=== PATIENT | female | born 1970 | race Caucasian/White ===

== ENCOUNTER → 2016-07-04 | Outpatient (CLI) | payer OTHER ==
--- NOTE | 2016-07-04 18:36 | REP ---
MRI RIGHT KNEE WITH AND WITHOUT CONTRAST: TECHNIQUE: Axial proton density fat saturation, sagittal proton density T2 STIR, water excitation, coronal proton density, proton density fat saturation. Pre and post T1 fat sat imaging, following the intravenous administration of 17 mL of gadolinium. Menisci are intact with no evidence of a tear. Cruciate and collateral ligaments are intact extensor mechanism is intact. There is mild edema and fluid anterior to the patellar tendon which may indicate mild prepatellar bursitis. There is mild to moderate diffuse chondromalacia of the patella. There is mild chondromalacia diffusely in the medial joint compartment. There is no bone marrow edema or occult fracture. There is a mild joint effusion. I do not see a popliteal cyst. Diffuse superficial soft-tissue edema is seen medially which is nonspecific with minimal soft tissue edema laterally. IMPRESSION: No meniscal tear. Cruciate and collateral ligaments are intact. There is edema and mild fluid anterior to the patellar tendon which may represent prepatellar bursitis. Superficial soft-tissue edema is also seen to a moderate degree medially and to a minimal degree laterally. Mild to moderate chondromalacia of the patella. Mild chondromalacia on the medial compartment. Signed by Silvestre Kim MD 07/04/2016 08:06 P
== END ==
LOC: M RAD 12:37
PROVIDERS: ATTEND Family Medicine
DX: M25.561 Pain in right knee (principal)
CPT/HCPCS: 73723; A9576

== ENCOUNTER 2017-01-25 18:40 | Observation (INO) | payer OTHER ==
[~2017-01-25] VITALS: Ht 172.7 cm; Wt 88.6 kg
[2017-01-25] MEDS ORDERED: BUPR150T3 PO (19:03)
[2017-01-25] MEDS ORDERED: SERT-138 PO (19:03)
[2017-01-25] MEDS ORDERED: ASPI325T24 PO (19:03)
[2017-01-25] MEDS ORDERED: CLON0.5T PO ×2 (19:03→22:12)
[2017-01-25] MEDS ORDERED: LAMO100T PO (19:03)
[2017-01-25] MEDS ORDERED: ZANA4TAB PO (19:03)
[2017-01-25] MEDS ORDERED: GABA-282 PO (19:03)
[2017-01-25] MEDS: NS 1,000 ML IV SCH (19:19)
[2017-01-25 19:46] LABS: BASO # 0.1 10^3/uL (0.0-0.2); BASO % 0.6 % (0.0-1.0); EOS # 0.3 10^3/uL (0.0-0.50); EOS % 3.1 % (0.0-3.0); IMMATURE GRANULOCYTE % 0.4 % (0-0); LYMPH # 2.9 10^3/uL (1.5-4.5); MEAN CORPUSCULAR HEMOGLOBIN 30.2 pg (27.0-33.0); MEAN CORPUSCULAR HGB CONC 33.6 g/dl (32.0-36.5); MEAN CORPUSCULAR VOLUME 89.8 fl (80.0-96.0); MONO # 0.6 10^3/uL (0.0-0.8); MONO % 6.1 % (0.0-5.0); NEUTROPHILS # 6.5 10^3/uL (1.8-7.7); NEUTROPHILS % 61.8 % (36.0-66.0); PLATELET COUNT, AUTOMATED 266 10^3/uL (150-450); RED CELL DISTRIBUTION WIDTH 13.1 % (11.5-14.5); WHITE BLOOD COUNT 10.5 10^3/uL (4.0-10.0)
--- NOTE | 2017-01-25 20:00 | REPUSA ---
CT of the head Clinical history: altered mental status. Technique: Multiple axial CT images were obtained through the head without administration of contrast . Findings: The ventricles and sulci are symmetric bilaterally. There is no evidence of acute hemorrhag e or infarct. There is no midline shift, mass effect, or extra-axial fluid collection. The osseous st ructures are unremarkable. The visualized paranasal sinuses and mastoid air cells are clear. Impression: Negative study.
[2017-01-25 20:12] LABS: ALBUMIN 3.9 GM/DL (3.2-5.2); ALBUMIN/GLOBULIN RATIO 0.95 (1.00-1.93); ALKALINE PHOSPHATASE 124 U/L (45-117); ALT/SGPT 29 U/L (12-78); ANION GAP 9 MEQ/L (8-16); AST/SGOT 21 U/L (7-37); BILIRUBIN,DIRECT < 0.1 MG/DL (0.0-0.2); BILIRUBIN,TOTAL 0.3 MG/DL (0.2-1.0); BLOOD UREA NITROGEN 16 MG/DL (7-18); CALCIUM LEVEL 8.7 MG/DL (8.5-10.1); CARBON DIOXIDE LEVEL 25 MEQ/L (21-32); CHLORIDE LEVEL 106 MEQ/L (98-107); CREATININE FOR GFR 0.82 MG/DL (0.55-1.02); GLOMERULAR FILTRATION RATE > 60.0 (>58); GLUCOSE, FASTING 88 MG/DL (70-105); POTASSIUM SERUM 3.9 MEQ/L (3.5-5.1); SODIUM LEVEL 140 MEQ/L (136-145)
[2017-01-25 20:55] LABS: METHADONE URINE NEGATIVE (NEGATIVE)
[2017-01-25] MEDS ORDERED: ACETAMINOPHEN 325 MG TAB PO ONE (21:00)
[2017-01-25] MEDS ORDERED: METOCLOPRAMIDE INJ 10MG/2ML VIAL (J2765) IV ONE (22:15)
--- NOTE | 2017-01-25 22:20 | REP ---
Clinical: Trauma. Fall . Technique: Internal rotation, external rotation, and Y view right shoulder . Findings: No acute fracture or dislocation. The acromioclavicular and glenohumeral joints are intact. No periarticular calcifications or degenerative changes are appreciated. Sub acromial space is normal. Surrounding soft tissues are unremarkable. Impression: Normal right shoulder radiographs. No acute fracture or dislocation. Signed by Faraz Metzger MD 01/25/2017 10:12 P
[2017-01-26] MEDS ORDERED: ONDANSETRON 4MG/2ML VIAL (J2405) IV PRN
[2017-01-26] MEDS ORDERED: ACETAMINOPHEN TAB 650MG DOSE (2X325MG) PO PRN
[2017-01-26] MEDS ORDERED: PERCOCET 5MG/325MG TAB PO PRN (00:15)
--- NOTE | 2017-01-26 00:32 | HPEPDOC ---
[facility] Medical History & Physical Date of Admission Jan 26, 2017 History and Physical PRIMARY CARE PROVIDER: Nadia Sandy ATTENDING: Dr. Aidan Busch CHIEF COMPLAINT: Syncope HISTORY OF PRESENT ILLNESS: This is a 46-year-old female past with history of depression, panic attacks who presents complaining of syncope. Patient states she was walking to her bathroom at around 6 PM last nights, when she got to the bathroom, she passed out. Patient denies any chest pain/ shortness of breath/palpitations prior to this episode. She does note that she was a bit lightheaded prior to this episode. No fecal or urinary incontinence. Patient did have head trauma she had the right side head onto the wall and also noted right shoulder pain after the fall. Patient denies any prior syncopal episodes. She recently met up with her son, and she was very distant pointed and depressed shortly after, which cause her to have a low appetite. She has not been eating and drinking adequately for the past 3 days.She does not that she has a history of depression however does not have any suicidal ideations. Patient denies any history of migraines however still has a left sided temporoparietal headache that is throbbing in nature after she fell. States it occasionally radiates to the left occipital region. No focal weakness. No blurred vision. Improved since the patient came to the ED. With associated photophobia and phonophobia. No focal weakness or deficits. PAST MEDICAL HISTORY: As per HPI PAST SURGICAL HISTORY: None SOCIAL HISTORY: Occasional wine, denies tobacco or illicit drug use. 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 REVIEW OF SYSTEMS: HEENT: Denies sore throat/headache CARDIOVASCULAR: Denies chest pain/palpitations RESPIRATORY: Denies shortness of breath/cough GASTROINTESTINAL: denies nausea/vomiting GENITOURINARY: Denies dysuria/urinary urgency. MUSCULOSKELETAL: Denies myalgias/arthralgias NEUROLOGICAL: Denies any focal weakness HOME MEDICATIONS: Please see below. PHYSICAL EXAMINATION: Vitals: (see below) General: No acute distress, laying comfortably in bed. HEENT: Moist mucous membranes. Neck: No JVD or lymphadenopathy Cardiac: RRR, No murmurs Pulm: Clear to auscultation b/l. No wheezing, rhonchi Abd: NT/ND + BS Ext: No edema or cyanosis Neuro: Strength 5/5 BUE and BLE. CN 2-12 intact. F to N intact Negative pronator drift. LABORATORY DATA: See below. IMAGING: CT head 01/25/17Findings: The ventricles and sulci are symmetric bilaterally. There is no evidence of acute hemorrhage or infarct. There is no midline shift, mass effect, or extra-axial fluid collection. The osseous structures are unremarkable. The visualized paranasal sinuses and mastoid air cells are clear. Impression: Negative study. X-ray right shoulder 01/25/17 Impression: Normal right shoulder radiographs. No acute fracture or dislocation. EKG with no acute ST changes or arrhythmias. MICROBIOLOGY: Please see below. ASSESSMENT/PLAN: 1. Syncope with collapse- question whether patient was dehydrated and orthostatic. Her orthostatic vitals were checked after she received fluids in the ED. We'll monitor on telemetry, trend cardiac enzymes, and obtain an echocardiogram. Continue IV hydration. 2. Headache status post fall- CT head negative. No focal deficits on exam. If no improvement with pain control, consider MRI brain. Neuro checks every 4 hours 3. History of depression- no suicidal ideations. Continue home meds. DVT prophylaxis enoxaparin Patient followed by Dr. Aidan Busch starting 01/26/17 at 7 AM. Vital Signs Vital Signs Date Time Temp Pulse Resp B/P (MAP) Pulse Ox O2 Delivery O2 Flow Rate FiO2 01/25/17 23:13 98.0 70 16 124/84 (97) 96 Room Air Laboratory Data Labs 24H Laboratory Tests 2 01/25/17 19:35: Immature Granulocyte % (Auto) 0.4H, White Blood Count 10.5H, Red Blood Count 4.61, Hemoglobin 13.9, Hematocrit 41.4, Mean Corpuscular Volume 89.8, Mean Corpuscular Hemoglobin 30.2, Mean Corpuscular Hemoglobin Concent 33.6, Red Cell Distribution Width 13.1, Platelet Count 266, Neutrophils (%) (Auto) 61.8, Lymphocytes (%) (Auto) 28.0, Monocytes (%) (Auto) 6.1H, Eosinophils (%) (Auto) 3.1H, Basophils (%) (Auto) 0.6, Neutrophils # (Auto) 6.5, Lymphocytes # (Auto) 2.9, Monocytes # (Auto) 0.6, Eosinophils # (Auto) 0.3, Basophils # (Auto) 0.1, Immature Granulocyte # (Auto) 0.0, Nucleated Red Blood Cells % (auto) 0.0, Anion Gap 9, Glomerular Filtration Rate > 60.0, Calcium Level 8.7, Aspartate Amino Transf (AST/SGOT) 21, Alanine Aminotransferase (ALT/SGPT) 29, Alkaline Phosphatase 124H, Total Bilirubin 0.3, Direct Bilirubin < 0.1, Total Creatine Kinase 100, Creatine Kinase MB 1.0, Creatine Kinase MB Relative Index 1.00, Troponin I < 0.02, Total Protein 8.0, Albumin 3.9, Albumin/Globulin Ratio 0.95L , Thyroid Stimulating Hormone (TSH) 2.940, Salicylates Level 2.6L, Acetaminophen Level < 2.0L, Ethyl Alcohol Level < 0.003 01/25/17 20:28: Urine Appearance CLEAR, Urine Color YELLOW, Urine pH 6.0, Urine Specific [place] 1.003, Urine Protein NEGATIVE, Urine Glucose (UA) NEGATIVE, Urine Ketones NEGATIVE, Urine Urobilinogen 0.2, Urine Bilirubin NEGATIVE, Urine Leukocyte Esterase 1+H, Urine Blood 1+H, Urine Nitrite NEGATIVE, Urine WBC (Auto ) 2, Urine RBC (Auto) 4H, Urine Hyaline Casts (Auto) 0, Urine Bacteria (Auto) 1+ H, Urine Squamous Epithelial Cells 4, Urine Transitional Epithelial Cells <1, Urine Sperm (Auto) , Urine Amphetamines Screen NEGATIVE, Urine Benzodiazepines Screen NEGATIVE, Urine Opiates Screen NEGATIVE, Urine Methadone Screen NEGATIVE , Urine Barbiturates Screen NEGATIVE, Urine Phencyclidine Screen NEGATIVE, Urine Cocaine Metabolite Screen NEGATIVE, Urine Cannabinoids Screen NEGATIVE 01/25/17 20:35: Bedside Glucose (Misc Panel) 98 01/26/17 00:28: CBC/BMP Laboratory Tests 01/25/17 19:35 Red Blood Count 4.61, Mean Corpuscular Volume 89.8, Mean Corpuscular Hemoglobin 30.2, Mean Corpuscular Hemoglobin Concent 33.6, Red Cell Distribution Width 13.1 , Neutrophils (%) (Auto) 61.8, Lymphocytes (%) (Auto) 28.0, Monocytes (%) (Auto ) 6.1 H, Eosinophils (%) (Auto) 3.1 H, Basophils (%) (Auto) 0.6, Neutrophils # ( Auto) 6.5, Lymphocytes # (Auto) 2.9, Monocytes # (Auto) 0.6, Eosinophils # (Auto ) 0.3, Basophils # (Auto) 0.1 Home Medications Scheduled Aspirin (Aspirin EC) 325 Mg Tabec, 325 MG PO DAILY Bupropion Hcl (Bupropion HCl Xl) 150 Mg Tab, 150 MG PO DAILY Clonazepam (Clonazepam) 0.5 Mg Tab, 1.5 MG PO QHS Gabapentin (Gabapentin) 300 Mg Cap, 300 MG PO TID Lamotrigine (Lamotrigine) 100 Mg Tab, 100 MG PO DAILY Sertraline HCl (Sertraline HCl) 100 Mg Tab, 150 MG PO DAILY Scheduled PRN Clonazepam (Clonazepam) 0.5 Mg Tab, 0.5 MG PO TID PRN for ANXIETY/AGITATION Tizanidine Hydrochloride (Zanaflex) 4 Mg Tab, 4 MG PO QHS PRN for PAIN Allergies Coded Allergies: No Known Allergies (Unverified , 01/25/17) CONRAD ANDREWS MD Jan 26, 2017 00:32
[2017-01-26] MEDS: NS 1,000 ML IV SCH (01:24)
[2017-01-26] MEDS ORDERED: NS 1,000 ML IV SCH ×2 (01:30)
[2017-01-26 01:35] VITALS: BP 107/61
[2017-01-26] MEDS ORDERED: clonazePAM 0.5 MG TAB PO PRN (05:15)
[2017-01-26] MEDS ORDERED: tiZANidine 4 MG TAB PO PRN (05:15)
[2017-01-26 05:42] VITALS: O2SAT 96
[2017-01-26 06:00] VITALS: BP 128/74
[2017-01-26] MEDS ORDERED: GABAPENTIN 300 MG CAP PO SCH (09:00)
[2017-01-26] MEDS ORDERED: lamoTRIgine 100MG TAB PO SCH (09:00)
[2017-01-26] MEDS ORDERED: buPROPion **XL** TABLET 150MG (WELLBUTRIN XL) PO SCH (09:00)
[2017-01-26] MEDS ORDERED: ASPIRIN ENTERIC 325 MG TAB PO SCH (09:00)
[2017-01-26] MEDS ORDERED: SERTRALINE HCL 50 MG TAB PO SCH (09:00)
--- NOTE | 2017-01-26 09:29 | ECGEPIP ---
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
--- NOTE | 2017-01-26 17:02 | DSES ---
DATE OF ADMISSION: 01/25/2017 DATE OF DISCHARGE: 01/26/20177 AGAINST MEDICAL ADVICE Patient was admitted for syncope. She was undergoing an evaluation when she had been getting IV fluids, and she stated that she felt better, and wanted to leave the hospital, understanding the risks, including recurrent episodes of syncope, falls, skull fracture and . Extensive time was spent at the bed side educating the patient to try and provide the safest disposition as possible. The patient declined all offers to remain in the hospital, and the patient did sign out of against medical advice. Paperwork completed.
[2017-01-26] MEDS ORDERED: clonazePAM 0.5 MG TAB PO SCH (21:00)
[2017-01-27] MEDS ORDERED: INFLUENZA QUADRIVALENT PF VACCINE 0.5ML SYRINGE (90686) IM ONE (09:00)
== END 2017-01-26 11:30 | disposition left against medical advice (07) ==
LOC: M ED 18:40 → M ED INP 18:41 → M MS5PR 01-26 01:45
PROVIDERS: ADMIT Internal Medicine; ATTEND Internal Medicine
DX: R55 Syncope and collapse (principal); R51 Headache; M25.511 Pain in right shoulder; F32.9 Major depressive disorder, single episode, unspecified; F41.0 Panic disorder [episodic paroxysmal anxiety]; Z79.899 Other long term (current) drug therapy; Z79.82 Long term (current) use of aspirin
CPT/HCPCS: 36415; 70450; 73030; 80048; 80076; 80307; 81001; 82550; 82553; 84443; 85025; 93005; 93041; 94760; 96361; 96374; 97161; 99285; G0480; J2765

== ENCOUNTER → 2022-08-09 | Outpatient (CLI) | payer OTHER ==
[~2022-08-09] MED LIST: ASPI-255 PO; BUPR150T12 PO; CLON0.5T2 PO; GABA-282 PO; LAMO100T3 PO; SERT-138 PO; ZANA4TAB PO
== END ==
LOC: M RAD 14:40
PROVIDERS: ATTEND Physician Assistant
DX: M54.2 Cervicalgia (principal); M48.02 Spinal stenosis, cervical region

== ENCOUNTER → 2022-08-15 | Outpatient (CLI) | payer OTHER ==
[~2022-08-15] MED LIST changes: +PROHANCE 279.3MG/ML 15ML VIAL As Ordered ONE; +PROHANCE 279.3MG/ML 5ML VIAL As Ordered ONE
== END ==
LOC: M RAD 12:42
PROVIDERS: ATTEND Physician Assistant
DX: M48.02 Spinal stenosis, cervical region (principal)
CPT/HCPCS: 72142; A9576

== ENCOUNTER → 2024-06-11 | Outpatient (CLI) | payer OTHER ==
[~2024-06-11] MED LIST changes: +GABA-1172 PO; -GABA-282 PO; +METH-1165 PO; -PROHANCE 279.3MG/ML 15ML VIAL As Ordered ONE; -PROHANCE 279.3MG/ML 5ML VIAL As Ordered ONE
== END ==
LOC: M RAD 13:01
PROVIDERS: ATTEND Orthopaedic Surgery
DX: M48.02 Spinal stenosis, cervical region (principal); M47.892 Other spondylosis, cervical region; M50.222 Other cervical disc displacement at C5-C6 level

== ENCOUNTER → 2025-01-12 | Outpatient (CLI) | payer OTHER ==
[~2025-01-12] MED LIST changes: +ACET-683 PO; +CLON1TAB17 PO; +CYCL10TA20 PO; +D 50CAP2 PO; +GABA-1635 PO; +HYDR-3713 PO; +IRON65TA2 PO; +K 10100T PO; +METO200T15 PO; +OMEP40CA5 PO; +PRED20TA PO; +SERT50TA29 PO; +SUMA20SP4
[2025-01-20 12:07] LABS: COTININE <1.0 ng/mL (.); NICOTINE <1.0 ng/mL (.)
== END ==
LOC: M LAB 13:28
PROVIDERS: ATTEND Neuromusculoskeletal Medicine, Sports Medicine
DX: M25.551 Pain in right hip (principal)
CPT/HCPCS: 36415; G0480

== ENCOUNTER → 2025-01-18 | Outpatient (REF) | payer OTHER | LOC: M LAB REF 16:55 | PROVIDERS: ATTEND Neuromusculoskeletal Medicine, Sports Medicine | DX: M16.0 Bilateral primary osteoarthritis of hip (principal) ==